=== PATIENT | male | born 1930 | race Caucasian/White ===

== ENCOUNTER → 2016-07-11 | Outpatient (CLI) | payer MEDICARE, OTHER ==
[~2016-07-11] MED LIST: ACET-1757 PO; ALBU1.25 NEB; ALBU18HF INH; ALBU8.5H5 INH; ASCO500T6 PO; ASPI-621 PO; ASPI325T80 PO; BISA10SU2 PR; CARB200C3 PO; CHOL10002 PO; CLOP75TA PO; FLUT1DIS3 INH; FLUT1DIS5 IH; FURO20TA3 PO; HYDR-3138 PO; HYDR-3240 PO; LISI-167 PO; LISINOPRIL PO; METO50TA82 PO; MULT-658 PO; OMEG-14 PO; OMEP20CA9 PO; OXYB10TA6 PO; OXYC-229 PO; POLY17PO5 PO; PROC25SU25 PR; ROSU5TAB PO; SENN-25 PO; TAMS0.4C2 PO; TEMA30CA6 PO; TICA90TA PO; restoril
[2016-07-11 13:31] LABS: ASPARTATE AMINO TRANSFERASE 7 U/L (15-37); BLOOD UREA NITROGEN 21 mg/dL (7-18)
== END | disposition home or self-care (01) ==
LOC: CFH 09:28
PROVIDERS: ATTEND Internal Medicine Cardiovascular Disease
DX: I10 Essential (primary) hypertension (principal); I25.10 Atherosclerotic heart disease of native coronary artery without angina pectoris; I34.0 Nonrheumatic mitral (valve) insufficiency; I48.91 Unspecified atrial fibrillation; F03.90 Unspecified dementia, unspecified severity, without behavioral disturbance, psychotic disturbance, mood disturbance, and anxiety
CPT/HCPCS: 36415; 80053; 80061; 84436; 84443; 84481

== ENCOUNTER → 2017-05-15 | Outpatient (CLI) | payer MEDICARE, OTHER ==
[~2017-05-15] MED LIST changes: -HYDR-3138 PO; +HYDR-3237 PO; -OXYC-229 PO; +OXYC-307 PO
== END | disposition home or self-care (01) ==
LOC: CFH 15:37
PROVIDERS: ATTEND Internal Medicine Cardiovascular Disease
DX: I08.3 Combined rheumatic disorders of mitral, aortic and tricuspid valves (principal); E78.5 Hyperlipidemia, unspecified; I10 Essential (primary) hypertension; I25.10 Atherosclerotic heart disease of native coronary artery without angina pectoris; I48.91 Unspecified atrial fibrillation; Z87.891 Personal history of nicotine dependence; Z95.1 Presence of aortocoronary bypass graft; Z79.01 Long term (current) use of anticoagulants
CPT/HCPCS: 93306

== ENCOUNTER 2017-12-07 14:11 | Emergency (ER) | payer MEDICARE, OTHER ==
[~2017-12-07] VITALS: Ht 188 cm; Wt 104.5 kg
[2017-12-07 14:47] LABS: BASOPHILS # (AUTO) 0.05 x10^3/uL (0-0.1); BASOPHILS % (AUTO) 1 % (0-1); EOSINOPHILS # (AUTO) 0.08 x10^3/uL (0-0.4); EOSINOPHILS % (AUTO) 1 % (1-7); LYMPHOCYTES # (AUTO) 1.54 x10^3/uL (1-3.4); LYMPHOCYTES % (AUTO) 15 % (22-44); MD NO; MEAN CORPUSCULAR HEMOGLOBIN 30.8 pg (27.5-34.5); MEAN CORPUSCULAR HGB CONC 33.3 g/dL (33.2-36.2); MEAN CORPUSCULAR VOLUME 92.4 fL (81-97); MEAN PLATELET VOLUME 7.6 fL (7.4-10.4); MONOCYTES # (AUTO) 0.69 x10^3/uL (0.2-0.8); MONOCYTES % (AUTO) 7 % (2-9); NEUTROPHILS # (AUTO) 8.26 x10^3/uL (1.8-6.8); NEUTROPHILS % (AUTO) 78 % (42-75); PLATELET COUNT 218 x10^3/uL (130-400); RED BLOOD COUNT 5.37 x10^6/uL (4.38-5.82); RED CELL DISTRIBUTION WIDTH 15.5 % (9.4-14.8)
[2017-12-07 14:59] LABS: ALANINE AMINOTRANSFERASE 33 U/L (12-78); ALBUMIN 3.3 g/dL (3.4-5.0); ANION GAP 7 mmol/L (5-15); CALCIUM 8.5 mg/dL (8.5-10.1); CHLORIDE 110 mmol/L (98-107); CREATININE 0.96 mg/dL (0.7-1.3)
[2017-12-07] MEDS ORDERED: SODIUM CHLORIDE FLUSH 10ML SYR IVF ONE (15:00)
[2017-12-07 15:03] LABS: ALKALINE PHOSPHATASE 108 U/L (45-117); BILIRUBIN,TOTAL 0.9 mg/dL (0.2-1.0); TOTAL PROTEIN 6.4 g/dL (6.4-8.2); TROPONIN I < 0.015 ng/mL (0.000-0.045)
[2017-12-07 15:30] LABS: MICROSCOPIC INDICATED
[2017-12-07 15:47] LABS: CULTURE INDICATED? NO
[2017-12-07] MEDS ORDERED: SODIUM CHLORIDE 0.9% 1,000ML IVBOLUS ONE (16:30)
[2017-12-07 17:50] VITALS: BP 142/86
== END 2017-12-07 18:08 | disposition home or self-care (01) ==
LOC: ED 18:00
DX: R53.1 Weakness (principal); G30.1 Alzheimer's disease with late onset; F02.80 Dementia in other diseases classified elsewhere, unspecified severity, without behavioral disturbance, psychotic disturbance, mood disturbance, and anxiety; I11.0 Hypertensive heart disease with heart failure; I50.9 Heart failure, unspecified; J44.9 Chronic obstructive pulmonary disease, unspecified; Z87.891 Personal history of nicotine dependence
CPT/HCPCS: 36415; 71045; 80053; 81001; 84484; 85025; 93005; 99285; J7030

== ENCOUNTER 2018-09-14 04:19 | Inpatient (IN) | payer MEDICARE, OTHER ==
[~2018-09-14] VITALS: Ht 180.3 cm; Wt 79.3 kg
[~2018-09-14 04:19] MED LIST changes: +ASPI-496 PO; -ASPI-621 PO; +ASPI81TA45 PO; +CEFD300C37 PO; +CETI5TAB5 PO; +CHOL500045 PO; +DONE10TA7 PO; +DOXY100C2 PO; +DULO20CA45 PO; +GABA-826 PO; +GABA300C10 PO; +LISI5TAB7 PO; +METO25TA91 PO; +POTA10TA5 PO; +ROSU10TA2 PO; +TAMS-11 PO
[2018-09-14] MEDS ORDERED: PANTOPRAZOLE 80 MG in SODIUM CHLORIDE 0.9% 50 ML IVPB ONE (04:41)
[2018-09-14] MEDS ORDERED: SODIUM CHLORIDE 0.9% 1,000ML IVBOLUS ONE (05:00)
--- NOTE | 2018-09-14 05:25 | NUR ---
REPORT FROM DILAI CHINO. FLUIDS AND PROTONIX RUNNING. FAMILY AT BEDSIDE. VSS. CALL LIGHT IN REACH
[2018-09-14 05:30] LABS: ALANINE AMINOTRANSFERASE 48 U/L (12-78); ALBUMIN 3.1 g/dL (3.4-5.0); ANION GAP 7 mmol/L (5-15); BASOPHILS % (AUTO) 0 % (0-1); CALCIUM 8.9 mg/dL (8.5-10.1); CHLORIDE 114 mmol/L (98-107); CREATININE 1.07 mg/dL (0.7-1.3); EOSINOPHILS # (AUTO) 0.08 x10^3/uL (0-0.4); EOSINOPHILS % (AUTO) 1 % (1-7); LYMPHOCYTES # (AUTO) 0.95 x10^3/uL (1-3.4); LYMPHOCYTES % (AUTO) 7 % (22-44); MD NO; MEAN CORPUSCULAR HEMOGLOBIN 29.2 pg (27.5-34.5); MEAN CORPUSCULAR HGB CONC 32.2 g/dL (33.2-36.2); MEAN CORPUSCULAR VOLUME 90.7 fL (81-97); MEAN PLATELET VOLUME 8.4 fL (7.4-10.4); MONOCYTES # (AUTO) 0.76 x10^3/uL (0.2-0.8); MONOCYTES % (AUTO) 5 % (2-9); NEUTROPHILS # (AUTO) 12.82 x10^3/uL (1.8-6.8); NEUTROPHILS % (AUTO) 88 % (42-75); PLATELET COUNT 203 x10^3/uL (130-400); RED BLOOD COUNT 5.03 x10^6/uL (4.38-5.82); RED CELL DISTRIBUTION WIDTH 16.7 % (9.4-14.8)
[2018-09-14 05:32] LABS: ALKALINE PHOSPHATASE 106 U/L (45-117); BILIRUBIN,TOTAL 0.9 mg/dL (0.2-1.0); TOTAL PROTEIN 6.3 g/dL (6.4-8.2)
[2018-09-14 05:44] LABS: INTERNATIONAL NORMALIZED RATIO 1.01 (0.93-1.1); PROTHROMBIN TIME 10.6 Seconds (9.6-11.5)
--- NOTE | 2018-09-14 05:57 | NUR ---
PT RESTING. PT GIVEN MOUTH SWABS. CALL LIGHT IN REACH
[2018-09-14] MEDS: SODIUM CHLORIDE 0.9% 1,000 ML IV SCH (07:16)
[2018-09-14] MEDS ORDERED: LABETALOL 5MG/ML, 20ML IVPush PRN (07:30)
[2018-09-14] MEDS ORDERED: ACETAMINOPHEN 325 MG TABLET PO PRN (07:30)
[2018-09-14] MEDS ORDERED: ONDANSETRON 2MG/ML, 2ML IVPush PRN (07:30)
[2018-09-14] MEDS: FUROSEMIDE 20 MG TABLET PO SCH (09:00)
[2018-09-14 09:34] LABS: MICROSCOPIC AUTO
[2018-09-14 09:46] LABS: CULTURE INDICATED? YES
[2018-09-14] MEDS: METOPROLOL SUCCINATE 25 MG TAB.ER.24H PO SCH (10:11)
[2018-09-14] MEDS: DULOXETINE 20 MG CAPSULE.DR PO SCH (10:12)
[2018-09-14] MEDS: DONEPEZIL 10 MG TABLET PO SCH (10:12)
[2018-09-14] MEDS: TAMSULOSIN 0.4 MG CAP.ER.24H PO SCH (10:12)
[2018-09-14] MEDS: CHOLECALCIFEROL 5,000u TAB PO SCH (10:12)
[2018-09-14 10:28] VITALS: BP 119/69
[2018-09-14 12:43] VITALS: BP 120/69
[2018-09-14] MEDS: PANTOPRAZOLE 80 MG in SODIUM CHLORIDE 0.9% 100 ML IV SCH ×2 (14:23→23:44)
[2018-09-14 19:49] VITALS: BP 119/79
[2018-09-14] MEDS: LISINOPRIL 5 MG TABLET PO SCH (19:59)
[2018-09-14] MEDS: GABAPENTIN 100 MG CAPSULE PO SCH (19:59)
[2018-09-14] MEDS: ATORVASTATIN 40 MG TABLET PO SCH (19:59)
[2018-09-15] MEDS: SODIUM CHLORIDE 0.9% 1,000 ML IV SCH ×2 (03:54→22:53)
[2018-09-15 04:00] VITALS: BP 116/71
[2018-09-15 06:26] LABS: CHLORIDE 114 mmol/L (98-107)
[2018-09-15 06:28] LABS: BASOPHILS # (AUTO) 0.02 x10^3/uL (0-0.1); BASOPHILS % (AUTO) 0 % (0-1); EOSINOPHILS # (AUTO) 0.13 x10^3/uL (0-0.4); EOSINOPHILS % (AUTO) 2 % (1-7); LYMPHOCYTES # (AUTO) 1.21 x10^3/uL (1-3.4); LYMPHOCYTES % (AUTO) 14 % (22-44); MD NO; MEAN CORPUSCULAR HGB CONC 30.9 g/dL (33.2-36.2); MEAN CORPUSCULAR VOLUME 90.5 fL (81-97); MEAN PLATELET VOLUME 8.3 fL (7.4-10.4); MONOCYTES # (AUTO) 0.66 x10^3/uL (0.2-0.8); MONOCYTES % (AUTO) 8 % (2-9); NEUTROPHILS # (AUTO) 6.71 x10^3/uL (1.8-6.8); NEUTROPHILS % (AUTO) 77 % (42-75); PLATELET COUNT 174 x10^3/uL (130-400); RED BLOOD COUNT 4.44 x10^6/uL (4.38-5.82)
[2018-09-15 06:31] LABS: ALANINE AMINOTRANSFERASE 33 U/L (12-78); ALBUMIN 2.7 g/dL (3.4-5.0); ALKALINE PHOSPHATASE 86 U/L (45-117); ANION GAP 10 mmol/L (5-15); BILIRUBIN,TOTAL 1.7 mg/dL (0.2-1.0); CALCIUM 8.5 mg/dL (8.5-10.1); CREATININE 0.92 mg/dL (0.7-1.3); TOTAL PROTEIN 5.6 g/dL (6.4-8.2)
[2018-09-15 07:10] VITALS: BP 129/76
[2018-09-15] MEDS: CHOLECALCIFEROL 5,000u TAB PO SCH (09:55)
[2018-09-15] MEDS: FUROSEMIDE 20 MG TABLET PO SCH (09:55)
[2018-09-15] MEDS: DULOXETINE 20 MG CAPSULE.DR PO SCH (09:55)
[2018-09-15] MEDS: TAMSULOSIN 0.4 MG CAP.ER.24H PO SCH (09:55)
[2018-09-15] MEDS: DONEPEZIL 10 MG TABLET PO SCH (09:55)
[2018-09-15] MEDS: METOPROLOL SUCCINATE 25 MG TAB.ER.24H PO SCH (09:56)
[2018-09-15 12:20] VITALS: BP 121/68
[2018-09-15] MEDS: PANTOPROZOLE 40MG TABLET PO SCH ×2 (12:38→19:59)
--- NOTE | 2018-09-15 12:40 | NUR ---
REC: NPO with IV fluids except sips/chips for now; orange sheet posted in room containing swallowing precautions Addendum: 09/15/18 at 1241 by Nelly CHOUDHURY Amended: Links added.
[2018-09-15] MEDS: POTASSIUM CHLORIDE 10 MEQ in D5%-0.45% NACL 1,000 ML IV SCH (14:32)
[2018-09-15] MEDS: GABAPENTIN 100 MG CAPSULE PO SCH (19:59)
[2018-09-15] MEDS: ATORVASTATIN 40 MG TABLET PO SCH (19:59)
[2018-09-15] MEDS: LISINOPRIL 5 MG TABLET PO SCH (19:59)
[2018-09-15 20:13] VITALS: BP 123/64
[2018-09-16 00:59] VITALS: BP 107/69
[2018-09-16] MEDS: POTASSIUM CHLORIDE 10 MEQ in D5%-0.45% NACL 1,000 ML IV SCH ×2 (03:51→17:59)
[2018-09-16 06:44] VITALS: BP 105/73
[2018-09-16] MEDS: TAMSULOSIN 0.4 MG CAP.ER.24H PO SCH (07:59)
[2018-09-16] MEDS: DONEPEZIL 10 MG TABLET PO SCH (07:59)
[2018-09-16] MEDS: CHOLECALCIFEROL 5,000u TAB PO SCH (07:59)
[2018-09-16] MEDS: PANTOPROZOLE 40MG TABLET PO SCH ×2 (07:59→20:19)
[2018-09-16] MEDS: DULOXETINE 20 MG CAPSULE.DR PO SCH (08:00)
[2018-09-16] MEDS: METOPROLOL SUCCINATE 25 MG TAB.ER.24H PO SCH (08:00)
[2018-09-16 13:52] VITALS: BP 100/63
--- NOTE | 2018-09-16 16:16 | NUR ---
REC THIN/FULL LIQUID; swallow precaution sheet posted at bedside, okay to advance to ground as tolerated Addendum: 09/16/18 at [address] Amended: Links added.
[2018-09-16 19:12] VITALS: BP 101/66
[2018-09-16] MEDS: ATORVASTATIN 40 MG TABLET PO SCH (20:19)
[2018-09-16] MEDS: GABAPENTIN 100 MG CAPSULE PO SCH (20:19)
[2018-09-16] MEDS: LISINOPRIL 5 MG TABLET PO SCH (20:20)
[2018-09-17 00:59] VITALS: BP 98/58
[2018-09-17 05:27] LABS: BASOPHILS # (AUTO) 0.01 x10^3/uL (0-0.1); BASOPHILS % (AUTO) 0 % (0-1); EOSINOPHILS # (AUTO) 0.05 x10^3/uL (0-0.4); EOSINOPHILS % (AUTO) 1 % (1-7); LYMPHOCYTES # (AUTO) 0.58 x10^3/uL (1-3.4); LYMPHOCYTES % (AUTO) 8 % (22-44); MD NO; MEAN CORPUSCULAR HEMOGLOBIN 28.9 pg (27.5-34.5); MEAN CORPUSCULAR HGB CONC 31.9 g/dL (33.2-36.2); MEAN CORPUSCULAR VOLUME 90.6 fL (81-97); MEAN PLATELET VOLUME 8.4 fL (7.4-10.4); MONOCYTES # (AUTO) 0.42 x10^3/uL (0.2-0.8); MONOCYTES % (AUTO) 6 % (2-9); NEUTROPHILS # (AUTO) 6.16 x10^3/uL (1.8-6.8); NEUTROPHILS % (AUTO) 85 % (42-75); PLATELET COUNT 171 x10^3/uL (130-400); RED BLOOD COUNT 4.33 x10^6/uL (4.38-5.82); RED CELL DISTRIBUTION WIDTH 16.6 % (9.4-14.8)
[2018-09-17 06:52] VITALS: BP 94/57
[2018-09-17 07:12] LABS: ANION GAP 7 mmol/L (5-15); CALCIUM 8.3 mg/dL (8.5-10.1); CHLORIDE 109 mmol/L (98-107)
[2018-09-17] MEDS: DULOXETINE 20 MG CAPSULE.DR PO SCH (08:26)
[2018-09-17] MEDS: CHOLECALCIFEROL 5,000u TAB PO SCH (08:26)
[2018-09-17] MEDS: TAMSULOSIN 0.4 MG CAP.ER.24H PO SCH (08:26)
[2018-09-17] MEDS: PANTOPROZOLE 40MG TABLET PO SCH ×2 (08:26→20:01)
[2018-09-17] MEDS: METOPROLOL SUCCINATE 25 MG TAB.ER.24H PO SCH (08:27)
[2018-09-17] MEDS: DONEPEZIL 10 MG TABLET PO SCH (08:28)
[2018-09-17] MEDS ORDERED: PANT40TA5 PO (10:43)
[2018-09-17 13:08] VITALS: BP 89/55
[2018-09-17] MEDS: POTASSIUM CHLORIDE 10 MEQ in D5%-0.45% NACL 1,000 ML IV SCH ×2 (13:48→23:57)
[2018-09-17 13:52] VITALS: BP 99/61
[2018-09-17 19:00] VITALS: BP 96/66
[2018-09-17] MEDS: LISINOPRIL 5 MG TABLET PO SCH (19:56)
[2018-09-17] MEDS: ATORVASTATIN 40 MG TABLET PO SCH (20:01)
[2018-09-17] MEDS: GABAPENTIN 100 MG CAPSULE PO SCH (20:01)
[2018-09-18 01:29] VITALS: BP 106/59
[2018-09-18 07:09] VITALS: BP 115/61
[2018-09-18] MEDS: TAMSULOSIN 0.4 MG CAP.ER.24H PO SCH (09:52)
[2018-09-18] MEDS: PANTOPROZOLE 40MG TABLET PO SCH ×2 (09:52→19:59)
[2018-09-18] MEDS: CHOLECALCIFEROL 5,000u TAB PO SCH (09:52)
[2018-09-18] MEDS: METOPROLOL SUCCINATE 25 MG TAB.ER.24H PO SCH (09:53)
[2018-09-18] MEDS: DULOXETINE 20 MG CAPSULE.DR PO SCH (09:53)
[2018-09-18] MEDS: DONEPEZIL 10 MG TABLET PO SCH (09:53)
[2018-09-18 14:00] VITALS: BP 107/64
[2018-09-18] MEDS: ATORVASTATIN 40 MG TABLET PO SCH (19:59)
[2018-09-18] MEDS: GABAPENTIN 100 MG CAPSULE PO SCH (19:59)
[2018-09-18 20:18] VITALS: BP 118/70
[2018-09-19 01:25] VITALS: BP 104/78
[2018-09-19 06:13] VITALS: BP 109/59
[2018-09-19] MEDS: PANTOPROZOLE 40MG TABLET PO SCH (08:59)
[2018-09-19] MEDS: METOPROLOL SUCCINATE 25 MG TAB.ER.24H PO SCH (08:59)
[2018-09-19] MEDS: DULOXETINE 20 MG CAPSULE.DR PO SCH (08:59)
[2018-09-19] MEDS: CHOLECALCIFEROL 5,000u TAB PO SCH (08:59)
[2018-09-19] MEDS: DONEPEZIL 10 MG TABLET PO SCH (08:59)
[2018-09-19] MEDS: TAMSULOSIN 0.4 MG CAP.ER.24H PO SCH (08:59)
== END 2018-09-19 14:39 | disposition home health service (06) | DRG 377 ==
LOC: ED 05:27 → EDIP 06:16 → 3NE 07:25
PROVIDERS: ADMIT Internal Medicine; ATTEND Internal Medicine
DX: K92.2 Gastrointestinal hemorrhage, unspecified (principal); R65.11 Systemic inflammatory response syndrome (SIRS) of non-infectious origin with acute organ dysfunction; D62 Acute posthemorrhagic anemia; I50.32 Chronic diastolic (congestive) heart failure; K20.9 Esophagitis, unspecified; F02.80 Dementia in other diseases classified elsewhere, unspecified severity, without behavioral disturbance, psychotic disturbance, mood disturbance, and anxiety; D72.829 Elevated white blood cell count, unspecified; E78.5 Hyperlipidemia, unspecified; G30.9 Alzheimer's disease, unspecified; I11.0 Hypertensive heart disease with heart failure; I25.10 Atherosclerotic heart disease of native coronary artery without angina pectoris; I27.20 Pulmonary hypertension, unspecified; I35.0 Nonrheumatic aortic (valve) stenosis; I48.2 Chronic atrial fibrillation; J44.9 Chronic obstructive pulmonary disease, unspecified; N40.0 Benign prostatic hyperplasia without lower urinary tract symptoms; Z88.2 Allergy status to sulfonamides; R13.10 Dysphagia, unspecified; Z51.5 Encounter for palliative care; Z66 Do not resuscitate; Z79.02 Long term (current) use of antithrombotics/antiplatelets; Z79.82 Long term (current) use of aspirin; Z87.19 Personal history of other diseases of the digestive system; Z95.1 Presence of aortocoronary bypass graft; Z95.5 Presence of coronary angioplasty implant and graft; Z90.49 Acquired absence of other specified parts of digestive tract
CPT/HCPCS: 36415; 71045; 80048; 80053; 81001; 85014; 85018; 85025; 85610; 85730; 86850; 86900; 87077; 87086; 87106; 87186; 93005; 96365; G0378; J2405; J3480; C9113; J7030

== ENCOUNTER 2018-10-02 12:36 | Emergency (ER) | payer MEDICARE, OTHER ==
[~2018-10-02] VITALS: Ht 180.3 cm; Wt 75.0 kg
[~2018-10-02 12:36] MED LIST changes: +PANT40TA5 PO
--- NOTE | 2018-10-02 13:04 | NUR ---
JOSE FROM MICHAEL RN. ASSUMING PT CARE AT THIS TIME. PT BIB EMS. HOME HEALTH NURSE NOTED HYPONSION 70/30. LASIX GIVEN THIS AM. PER EMS BP 106/65. HR 60'S. PT DENIES ANY SYMTPOMS, STATES HE FEELS FINE.
--- NOTE | 2018-10-02 13:15 | NUR ---
PT RESTING ON [employer]. SIDERAILS UP X 2. CALL LIGHT IN REACH. NO COMPLAINTS AT THIS TIME.
[2018-10-02 14:05] VITALS: BP 112/82
--- NOTE | 2018-10-02 14:06 | NUR ---
Patient/Caregiver given discharge instructions and they have confirmed that they understand the instructions. Patient to DC desk by WC with assistance from spouse. Pt left with all personal belongings.
== END 2018-10-02 14:08 | disposition home or self-care (01) ==
LOC: ED 14:06
DX: I95.9 Hypotension, unspecified (principal); I11.0 Hypertensive heart disease with heart failure; I50.9 Heart failure, unspecified; I48.91 Unspecified atrial fibrillation; J44.9 Chronic obstructive pulmonary disease, unspecified; Z95.1 Presence of aortocoronary bypass graft; Z87.891 Personal history of nicotine dependence; Z90.49 Acquired absence of other specified parts of digestive tract
CPT/HCPCS: 99283

== ENCOUNTER 2019-03-01 01:03 | Inpatient (IN) | payer MEDICARE, OTHER ==
[~2019-03-01] VITALS: Ht 180.3 cm; Wt 76.5 kg
[~2019-03-01 01:03] MED LIST changes: -ACET-1757 PO; +ACET-2065 PO; -BISA10SU2 PR; +BISA10SU4 PR
--- NOTE | 2019-03-01 01:18 | NUR ---
patient explained plan of care. verbalized understanding, will contact when plan of care has been established by md. vital signs stable. labs drawn, ekg completed. will continue to monitor. patient has been placed near nurses station to improve patient safety outcomes.
[2019-03-01 01:26] LABS: BASOPHILS # (AUTO) 0.03 x10^3/uL (0-0.1); BASOPHILS % (AUTO) 0 % (0-1); EOSINOPHILS # (AUTO) 0.18 x10^3/uL (0-0.4); EOSINOPHILS % (AUTO) 2 % (1-7); LYMPHOCYTES # (AUTO) 1.49 x10^3/uL (1-3.4); LYMPHOCYTES % (AUTO) 15 % (22-44); MD NO; MEAN CORPUSCULAR HGB CONC 31.5 g/dL (33.2-36.2); MEAN CORPUSCULAR VOLUME 85.9 fL (81-97); MEAN PLATELET VOLUME 7.8 fL (7.4-10.4); MONOCYTES # (AUTO) 0.83 x10^3/uL (0.2-0.8); MONOCYTES % (AUTO) 8 % (2-9); NEUTROPHILS # (AUTO) 7.75 x10^3/uL (1.8-6.8); NEUTROPHILS % (AUTO) 75 % (42-75); PLATELET COUNT 245 x10^3/uL (130-400); RED BLOOD COUNT 4.84 x10^6/uL (4.38-5.82); RED CELL DISTRIBUTION WIDTH 17.7 % (9.4-14.8)
[2019-03-01] MEDS ORDERED: SODIUM CHLORIDE FLUSH 10ML SYR IVF ONE (01:30)
[2019-03-01 01:33] LABS: INTERNATIONAL NORMALIZED RATIO 1.07 (0.93-1.1); PROTHROMBIN TIME 11.2 Seconds (9.6-11.5)
[2019-03-01 01:34] LABS: ALANINE AMINOTRANSFERASE 30 U/L (12-78); ALBUMIN 3.5 g/dL (3.4-5.0); ANION GAP 7 mmol/L (5-15); CALCIUM 9.1 mg/dL (8.5-10.1); CHLORIDE 103 mmol/L (98-107); CREATININE 1.26 mg/dL (0.7-1.3)
--- NOTE | 2019-03-01 01:36 | NUR ---
BREAK RN: PT. PROVIDED WITH SPRITE AFTER OK FROM DR. LOVE. ALL MONITORS IN PLACE. CALL LIGHT IN REACH. ALL SAFETY MEASURES OBSERVED.
[2019-03-01 01:39] LABS: ALKALINE PHOSPHATASE 125 U/L (45-117); T4 (THYROXINE) 6.9 mcg/dL (4.5-12.1); TOTAL PROTEIN 6.8 g/dL (6.4-8.2); TROPONIN I < 0.015 ng/mL (0.000-0.045)
--- NOTE | 2019-03-01 01:50 | NUR ---
patient resting in bed, no noted acute distress. vital signs stable. even unlabored respiratons. will continue to monitor.
[2019-03-01] MEDS ORDERED: FUROSEMIDE 40 MG/4 ML IV ONE (02:00)
--- NOTE | 2019-03-01 02:04 | NUR ---
REPORT BACK TO MATTI LEAHY TO REASSUME CARE OF PT.
[2019-03-01] MEDS ORDERED: FUROSEMIDE 40 MG/4 ML ONE (02:33)
--- NOTE | 2019-03-01 02:50 | NUR ---
patient in room watching tv. stated that he was hungry will consult md regarding food. no other needs noted at this time. vital signs stable. will continue to monitor.
[2019-03-01] MEDS ORDERED: HYDR-3240 PO (03:15)
[2019-03-01] MEDS ORDERED: ASPI-496 PO (03:15)
[2019-03-01] MEDS ORDERED: LORA10TA62 PO (03:16)
--- NOTE | 2019-03-01 03:17 | NUR ---
patient admitted to hospital, md verbalized approval for patient to eat. the patient was given food, and sprite per request. patient tolerates food and oral fluids well, no noted acute distress while eating. patient updated on plan of care. no further needs noted at this time.
[2019-03-01 04:03] VITALS: BP 122/72
[2019-03-01] MEDS ORDERED: DOCUSATE 100 MG CAPSULE PO PRN (05:00)
[2019-03-01] MEDS ORDERED: POLYETHYLENE GLYCOL 17 GM PACKET PO PRN (05:00)
[2019-03-01] MEDS ORDERED: hydrALAzine 20 MG/ML, 1ML IVPush PRN (05:00)
[2019-03-01] MEDS ORDERED: ASPIRIN 81 MG TABLET EC PO SCH (05:00)
[2019-03-01] MEDS ORDERED: ONDANSETRON 2MG/ML, 2ML IVPush PRN (05:00)
[2019-03-01] MEDS ORDERED: BISACODYL 10 MG SUPP PR PRN (05:00)
[2019-03-01] MEDS ORDERED: PROMETHAZINE 25 MG/ML, 1ML IM PRN (05:00)
[2019-03-01] MEDS ORDERED: ONDANSETRON ODT 4 MG PO PRN (05:00)
[2019-03-01] MEDS: HEPARIN 5,000 UNITS/ML, 1ML SQ SCH ×3 (06:06→20:27)
[2019-03-01 06:08] LABS: HEMOGLOBIN A1C 5.6 % (4.2-6.3)
[2019-03-01 07:02] LABS: MICROSCOPIC NOT IND
[2019-03-01 07:04] LABS: CULTURE INDICATED? NO
[2019-03-01 07:50] VITALS: BP 120/73
[2019-03-01] MEDS ORDERED: FUROSEMIDE 20 MG/2 ML IV SCH (09:00)
[2019-03-01 09:11] LABS: TROPONIN I < 0.015 ng/mL (0.000-0.045)
[2019-03-01] MEDS: PANTOPROZOLE 40MG TABLET PO SCH ×2 (09:56→20:28)
[2019-03-01] MEDS: CHOLECALCIFEROL 5,000u TAB PO SCH (09:56)
[2019-03-01] MEDS: DULOXETINE 20 MG CAPSULE.DR PO SCH (09:56)
[2019-03-01] MEDS: DONEPEZIL 10 MG TABLET PO SCH (09:56)
[2019-03-01] MEDS: TAMSULOSIN 0.4 MG CAP.ER.24H PO SCH (09:56)
[2019-03-01 12:15] LABS: TROPONIN I < 0.015 ng/mL (0.000-0.045)
[2019-03-01 13:42] VITALS: BP 115/77
[2019-03-01] MEDS ORDERED: FUROSEMIDE 20 MG/2 ML IV ONE (15:00)
[2019-03-01 18:34] VITALS: BP 95/56
[2019-03-01] MEDS: GABAPENTIN 100 MG CAPSULE PO SCH (20:28)
[2019-03-01] MEDS ORDERED: MAGNESIUM SULFATE PMX 2GM/50ML 50 ML IV ONE (22:00)
[2019-03-02 02:44] VITALS: BP 103/64
[2019-03-02 05:35] LABS: ALBUMIN 3.2 g/dL (3.4-5.0); ANION GAP 5 mmol/L (5-15); CALCIUM 9.3 mg/dL (8.5-10.1); CHLORIDE 101 mmol/L (98-107)
[2019-03-02] MEDS: HEPARIN 5,000 UNITS/ML, 1ML SQ SCH ×3 (05:38→20:31)
[2019-03-02 05:39] LABS: ALANINE AMINOTRANSFERASE 25 U/L (12-78); ALKALINE PHOSPHATASE 117 U/L (45-117); BILIRUBIN,TOTAL 1.2 mg/dL (0.2-1.0); CHOL/HDL RATIO 2.5; CHOLESTEROL, TOTAL 131 mg/dL (140-239); CREATININE 1.12 mg/dL (0.7-1.3); HDL CHOL % 40 % (26-37); HDL CHOLESTEROL (DIRECT) 52 mg/dL (40-60); LDL CHOLESTEROL,CALCULATED 62 mg/dL (54-169); LDL/HDL RATIO 1.2 (0.5-3.0); TOTAL PROTEIN 6.4 g/dL (6.4-8.2); TRIGLYCERIDES 84 mg/dL (50-200); VLDL CHOLESTEROL 17 mg/dL (0-25)
[2019-03-02 06:04] LABS: BASOPHILS % (AUTO) 0 % (0-1); EOSINOPHILS # (AUTO) 0.15 x10^3/uL (0-0.4); EOSINOPHILS % (AUTO) 2 % (1-7); LYMPHOCYTES # (AUTO) 1.38 x10^3/uL (1-3.4); LYMPHOCYTES % (AUTO) 16 % (22-44); MD NO; MEAN CORPUSCULAR HGB CONC 31.4 g/dL (33.2-36.2); MEAN CORPUSCULAR VOLUME 85.9 fL (81-97); MEAN PLATELET VOLUME 8.1 fL (7.4-10.4); MONOCYTES # (AUTO) 0.85 x10^3/uL (0.2-0.8); MONOCYTES % (AUTO) 10 % (2-9); NEUTROPHILS # (AUTO) 6.51 x10^3/uL (1.8-6.8); NEUTROPHILS % (AUTO) 73 % (42-75); PLATELET COUNT 192 x10^3/uL (130-400); RED BLOOD COUNT 5.02 x10^6/uL (4.38-5.82); RED CELL DISTRIBUTION WIDTH 17.5 % (9.4-14.8)
[2019-03-02 06:52] VITALS: BP 108/67
[2019-03-02] MEDS: DONEPEZIL 10 MG TABLET PO SCH (08:45)
[2019-03-02] MEDS: TAMSULOSIN 0.4 MG CAP.ER.24H PO SCH (08:45)
[2019-03-02] MEDS: CHOLECALCIFEROL 5,000u TAB PO SCH (08:45)
[2019-03-02] MEDS: DULOXETINE 20 MG CAPSULE.DR PO SCH (08:45)
[2019-03-02] MEDS: POTASSIUM CHLORIDE 20 MEQ TAB.ER.PRT PO SCH ×2 (08:46→17:24)
[2019-03-02] MEDS: PANTOPROZOLE 40MG TABLET PO SCH ×2 (08:46→20:31)
[2019-03-02] MEDS ORDERED: FUROSEMIDE 40 MG/4 ML IV SCH (09:00)
[2019-03-02] MEDS: ACETAMINOPHEN 325 MG TABLET PO PRN (09:52)
[2019-03-02 13:28] VITALS: BP 97/62
[2019-03-02 19:10] VITALS: BP 117/69
[2019-03-02] MEDS: GABAPENTIN 100 MG CAPSULE PO SCH (20:31)
[2019-03-03 03:53] VITALS: BP 102/66
[2019-03-03] MEDS: HEPARIN 5,000 UNITS/ML, 1ML SQ SCH ×3 (03:59→21:23)
[2019-03-03 05:28] LABS: BASOPHILS # (AUTO) 0.05 x10^3/uL (0-0.1); BASOPHILS % (AUTO) 1 % (0-1); EOSINOPHILS # (AUTO) 0.12 x10^3/uL (0-0.4); EOSINOPHILS % (AUTO) 1 % (1-7); LYMPHOCYTES # (AUTO) 1.54 x10^3/uL (1-3.4); LYMPHOCYTES % (AUTO) 17 % (22-44); MD NO; MEAN CORPUSCULAR HGB CONC 31.3 g/dL (33.2-36.2); MEAN CORPUSCULAR VOLUME 86.3 fL (81-97); MEAN PLATELET VOLUME 8.4 fL (7.4-10.4); MONOCYTES # (AUTO) 1.08 x10^3/uL (0.2-0.8); MONOCYTES % (AUTO) 12 % (2-9); NEUTROPHILS # (AUTO) 6.58 x10^3/uL (1.8-6.8); NEUTROPHILS % (AUTO) 70 % (42-75); PLATELET COUNT 193 x10^3/uL (130-400); RED BLOOD COUNT 4.87 x10^6/uL (4.38-5.82); RED CELL DISTRIBUTION WIDTH 17.7 % (9.4-14.8)
[2019-03-03 05:36] LABS: ANION GAP 3 mmol/L (5-15); CALCIUM 9.3 mg/dL (8.5-10.1); CHLORIDE 102 mmol/L (98-107); CREATININE 1.14 mg/dL (0.7-1.3)
[2019-03-03 06:45] VITALS: BP 106/67
[2019-03-03] MEDS: POTASSIUM CHLORIDE 20 MEQ TAB.ER.PRT PO SCH (09:54)
[2019-03-03] MEDS: DONEPEZIL 10 MG TABLET PO SCH (09:54)
[2019-03-03] MEDS: PANTOPROZOLE 40MG TABLET PO SCH ×2 (09:54→21:23)
[2019-03-03] MEDS: CHOLECALCIFEROL 5,000u TAB PO SCH (09:54)
[2019-03-03] MEDS: DULOXETINE 20 MG CAPSULE.DR PO SCH (09:54)
[2019-03-03] MEDS: TAMSULOSIN 0.4 MG CAP.ER.24H PO SCH (09:59)
[2019-03-03 13:03] VITALS: BP 102/62
[2019-03-03 18:54] VITALS: BP 118/61
[2019-03-03] MEDS: GABAPENTIN 100 MG CAPSULE PO SCH (21:23)
[2019-03-04 00:39] VITALS: BP 123/62
[2019-03-04] MEDS: HEPARIN 5,000 UNITS/ML, 1ML SQ SCH ×3 (05:02→20:51)
[2019-03-04 07:26] VITALS: BP 112/82
[2019-03-04] MEDS: CHOLECALCIFEROL 5,000u TAB PO SCH (08:41)
[2019-03-04] MEDS: TAMSULOSIN 0.4 MG CAP.ER.24H PO SCH (08:41)
[2019-03-04] MEDS: DULOXETINE 20 MG CAPSULE.DR PO SCH (08:41)
[2019-03-04] MEDS: DONEPEZIL 10 MG TABLET PO SCH (08:41)
[2019-03-04] MEDS: PANTOPROZOLE 40MG TABLET PO SCH ×2 (08:41→20:51)
[2019-03-04 14:02] VITALS: BP 122/68
[2019-03-04 19:35] VITALS: BP 118/70
[2019-03-04] MEDS: GABAPENTIN 100 MG CAPSULE PO SCH (20:51)
[2019-03-05 02:20] VITALS: BP 120/66
[2019-03-05] MEDS: HEPARIN 5,000 UNITS/ML, 1ML SQ SCH ×3 (06:15→20:17)
[2019-03-05 06:50] VITALS: BP 110/70
[2019-03-05] MEDS: GUAIFENESIN 200 MG TABLET PO SCH ×4 (08:34→20:17)
[2019-03-05] MEDS: DONEPEZIL 10 MG TABLET PO SCH (08:35)
[2019-03-05] MEDS: PANTOPROZOLE 40MG TABLET PO SCH ×2 (08:35→20:17)
[2019-03-05] MEDS: TAMSULOSIN 0.4 MG CAP.ER.24H PO SCH (08:35)
[2019-03-05] MEDS: DULOXETINE 20 MG CAPSULE.DR PO SCH (08:36)
[2019-03-05] MEDS: CHOLECALCIFEROL 5,000u TAB PO SCH (08:36)
[2019-03-05 12:56] VITALS: BP 122/78
[2019-03-05] MEDS: ACETAMINOPHEN 325 MG TABLET PO PRN (15:54)
[2019-03-05] MEDS: GABAPENTIN 100 MG CAPSULE PO SCH (20:17)
[2019-03-05 20:28] VITALS: BP 100/68
[2019-03-06 01:26] VITALS: BP 108/61
[2019-03-06] MEDS: GUAIFENESIN 200 MG TABLET PO SCH ×2 (05:22→12:00)
[2019-03-06] MEDS: HEPARIN 5,000 UNITS/ML, 1ML SQ SCH (05:22)
[2019-03-06 07:40] VITALS: BP 110/64
[2019-03-06] MEDS ORDERED: FUROSEMIDE 20 MG TABLET PO SCH (09:00)
[2019-03-06] MEDS: CHOLECALCIFEROL 5,000u TAB PO SCH (09:29)
[2019-03-06] MEDS: PANTOPROZOLE 40MG TABLET PO SCH (09:29)
[2019-03-06] MEDS: DULOXETINE 20 MG CAPSULE.DR PO SCH (09:29)
[2019-03-06] MEDS: TAMSULOSIN 0.4 MG CAP.ER.24H PO SCH (09:29)
[2019-03-06] MEDS: DONEPEZIL 10 MG TABLET PO SCH (09:29)
== END 2019-03-06 13:10 | DRG 292 ==
LOC: ED 01:44 → EDIP 02:06 → 5SO 03:25
PROVIDERS: ADMIT Internal Medicine; ATTEND Family Medicine
DX: I11.0 Hypertensive heart disease with heart failure (principal); I48.20 Chronic atrial fibrillation, unspecified; D68.69 Other thrombophilia; I42.9 Cardiomyopathy, unspecified; I50.23 Acute on chronic systolic (congestive) heart failure; E78.5 Hyperlipidemia, unspecified; F02.80 Dementia in other diseases classified elsewhere, unspecified severity, without behavioral disturbance, psychotic disturbance, mood disturbance, and anxiety; G30.9 Alzheimer's disease, unspecified; I08.1 Rheumatic disorders of both mitral and tricuspid valves; I25.10 Atherosclerotic heart disease of native coronary artery without angina pectoris; J44.9 Chronic obstructive pulmonary disease, unspecified; N40.0 Benign prostatic hyperplasia without lower urinary tract symptoms; R29.6 Repeated falls; Z66 Do not resuscitate; W18.30XA Fall on same level, unspecified, initial encounter; Z87.19 Personal history of other diseases of the digestive system; Z87.891 Personal history of nicotine dependence; Z95.1 Presence of aortocoronary bypass graft; Z95.5 Presence of coronary angioplasty implant and graft; Z90.49 Acquired absence of other specified parts of digestive tract; Z88.2 Allergy status to sulfonamides; Z82.49 Family history of ischemic heart disease and other diseases of the circulatory system; Z79.82 Long term (current) use of aspirin; Z79.899 Other long term (current) drug therapy
CPT/HCPCS: 36415; 71045; 80048; 80053; 80061; 81003; 83036; 83735; 83880; 84436; 84439; 84443; 84484; 85025; 85610; 85730; 93005; 93306; G0378; J1644; J1940; J3475

== ENCOUNTER 2019-04-13 06:14 | Inpatient (IN) | payer MEDICARE, OTHER ==
[~2019-04-13] VITALS: Ht 180.3 cm; Wt 82.6 kg
[~2019-04-13 06:14] MED LIST changes: +LORA10TA62 PO
[2019-04-13] MEDS ORDERED: SODIUM CHLORIDE FLUSH 10ML SYR IVF ONE (06:30)
[2019-04-13] MEDS ORDERED: FURO20TA3 PO (06:36)
[2019-04-13] MEDS ORDERED: POTA20PA25 PO (06:36)
[2019-04-13] MEDS ORDERED: FINA5TAB4 PO (06:36)
[2019-04-13] MEDS ORDERED: OLODATEROL (06:36)
[2019-04-13 06:42] LABS: MEAN CORPUSCULAR HEMOGLOBIN 25.8 pg (27.5-34.5); MEAN CORPUSCULAR HGB CONC 30.9 g/dL (33.2-36.2); MEAN CORPUSCULAR VOLUME 83.3 fL (81-97); MEAN PLATELET VOLUME 7.7 fL (7.4-10.4); PLATELET COUNT 257 x10^3/uL (130-400); RED BLOOD COUNT 4.81 x10^6/uL (4.38-5.82); RED CELL DISTRIBUTION WIDTH 20.1 % (9.4-14.8)
[2019-04-13] MEDS ORDERED: DILTIAZEM 5 MG/ML, 5ML ONE (06:42)
--- NOTE | 2019-04-13 06:46 | NUR ---
10MG CARDIZEM GIVEN PER MD ORDER.
[2019-04-13 06:54] LABS: INTERNATIONAL NORMALIZED RATIO 1.26 (0.93-1.1); PROTHROMBIN TIME 13.1 Seconds (9.6-11.5)
[2019-04-13] MEDS ORDERED: AZITHROMYCIN 500 MG in SODIUM CHLORIDE 0.9% 250 ML IVPB ONE (07:00)
[2019-04-13] MEDS ORDERED: CEFTRIAXONE PMX 1GM/50ML 50 ML IVPB ONE (07:00)
[2019-04-13] MEDS ORDERED: DILTIAZEM 5 MG/ML, 5ML IV ONE (07:00)
[2019-04-13 07:01] LABS: MD YES
[2019-04-13 07:03] LABS: BAND#(MANUAL) 0.95 x10^3/uL; BANDS%(MANUAL) 4 % (0-7); LYMPH#(MANUAL) 0.71 x10^3/uL (1-3.4); LYMPHS% (MANUAL) 3 % (22-44); MONOS#(MANUAL) 0.71 x10^3/uL (0.3-2.7); MONOS% (MANUAL) 3 % (2-9); SEG#(MANUAL) 21.42 x10^3/uL (1.8-6.8); SEGS% (MANUAL) 90 % (42-75)
[2019-04-13 07:04] LABS: ANISOCYTOSIS 1+
[2019-04-13 07:05] LABS: <PLATELET ESTIMATE> ADEQUATE; <PLT MORPHOLOGY> NORMAL PLT MORPH; OVALOCYTES 1+; POLYCHROMASIA 1+
--- NOTE | 2019-04-13 07:06 | NUR ---
RECEIVED REPORT FROM ROSENDA CHINO, PLAN OF CARE DISCUSSED. PT ALERT AND ORIENTED TO SELF AND PLACED, CONFUSED AT TIMES. CHEMICALS FERMENTATION OPERATOR EQUAL. SWALLOWED FLUID WELL, NO COUGHING. PT ON DAY CARE PROVIDER TACHY AT 110-120, CONTINOUS SPO2 AND CYCLE VS.
[2019-04-13] MEDS ORDERED: CEFTRIAXONE PMX 1GM/50ML 50 ML ONE (07:10)
[2019-04-13] MEDS ORDERED: ASPIRIN 81 MG TABLET CHEW ONE (07:11)
--- NOTE | 2019-04-13 07:20 | NUR ---
RECTAL TEMP 97.7, PT HAS DECUB ULCER ON COCCYX, OPEN AREA BLANCHING. PT INCONTIENT OF STOOLS. CLEANED PAUL AREA. REPOSITIONED. BLOOD CULTURES DRAWN X 2
[2019-04-13] MEDS ORDERED: ASPIRIN 81 MG TABLET CHEW PO ONE (07:30)
--- NOTE | 2019-04-13 07:49 | NUR ---
DISCUSSED WITH MD REGARDING SEPSIS PROTOCOL, PER MD NO FLUIDS ORDERED.
[2019-04-13] MEDS ORDERED: SODIUM CHLORIDE FLUSH 10ML SYR IVF PRN ×2 (08:00→11:30)
--- NOTE | 2019-04-13 08:10 | NUR ---
CALLED [facility] PER REQUEST AT [phone] REPORTED FINDINGS, WILL BE IN LATER TODAY.
[2019-04-13] MEDS ORDERED: SODIUM CHLORIDE 0.9% 1,000ML IVBOLUS ONE (08:30)
--- NOTE | 2019-04-13 08:32 | NUR ---
ATTEMPTED TO STRAIGHT CATH FOR URINE, PT HAS STRICTURE UNABLE TO ADVANCE CATH. MD AWARE
--- NOTE | 2019-04-13 09:27 | NUR ---
PT SLEEPING, RESP EVEN AND UNLABORED.
--- NOTE | 2019-04-13 10:07 | NUR ---
PLACED PT ON WAFFLE MATTRESS, NOTIFIED OF BP 86/56
--- NOTE | 2019-04-13 10:32 | NUR ---
CENTRAL LINE INSERTED BY DR. RASMUSSEN, TIME OUT CALLED. PT VERBAL CONSENT.
[2019-04-13] MEDS ORDERED: NOREPINEPHRINE 4 MG in SODIUM CHLORIDE 0.9% 246 ML IV PRN ×2 (10:57→12:00)
[2019-04-13] MEDS ORDERED: SODIUM CHLORIDE 0.9% 1,000 ML IV ONE (11:15)
--- NOTE | 2019-04-13 11:45 | NUR ---
REPORT TO PETER CHINO, PLAN OF CARE DISCUSSED
[2019-04-13] MEDS ORDERED: NS + 20MEQ KCL 1,000 ML IV SCH (11:55)
[2019-04-13] MEDS ORDERED: ACETAMINOPHEN 325 MG TABLET PO PRN (12:00)
[2019-04-13] MEDS ORDERED: OXYcodone/APAP 5/325MG TABLET PO PRN (12:00)
[2019-04-13] MEDS ORDERED: HEPARIN 5,000 UNITS/ML, 1ML SQ SCH (12:00)
[2019-04-13] MEDS ORDERED: ONDANSETRON 2MG/ML, 2ML IVPush PRN (12:00)
[2019-04-13] MEDS ORDERED: PIPERACILLIN/TAZO/PMX 2.25GM 50 ML IV SCH (12:00)
[2019-04-13] MEDS ORDERED: DILTIAZEM 5 MG/ML, 5ML IVPush PRN (12:00)
[2019-04-13 12:33] LABS: FREE T4 (FREE THYROXINE) 1.2 ng/dL (0.76-1.46)
[2019-04-13] MEDS: PIPERACILLIN/TAZO/PMX 3.375GM 50 ML IV SCH ×2 (13:34→19:28)
[2019-04-13 14:03] LABS: ALBUMIN 2.6 g/dL (3.4-5.0); BILIRUBIN, DIRECT 0.4 mg/dL (0.1-0.2)
[2019-04-13 14:05] LABS: BILIRUBIN,INDIRECT 0.5 mg/dL (0.0-2.0); BILIRUBIN,TOTAL 0.9 mg/dL (0.2-1.0)
[2019-04-13] MEDS ORDERED: MAGNESIUM SULFATE PMX 2GM/50ML 50 ML IV ONE (16:00)
[2019-04-13] MEDS ORDERED: HEPARIN 5,000 UNITS/ML, 1ML IV ONE (16:00)
[2019-04-13] MEDS ORDERED: CALCIUM GLUCONATE 9.2 MEQ in SODIUM CHLORIDE 0.9% 100 ML IV ONE (16:30)
[2019-04-13] MEDS: LIDODERM 5% PATCH TD SCH (17:02)
[2019-04-13 17:05] LABS: MICROSCOPIC AUTO
[2019-04-13 17:07] LABS: CULTURE INDICATED? YES
[2019-04-13 17:17] LABS: POTASSIUM,URINE RANDOM 43 mmol/L; SODIUM,URINE RANDOM 11 mmol/L
[2019-04-13 17:24] LABS: CHLORIDE,URINE RANDOM < 10 mmol/L
[2019-04-13] MEDS: HEPARIN 25,000 UNITS/500ML PMX 500 ML IV PRN (18:01)
[2019-04-13] MEDS: GABAPENTIN 100 MG CAPSULE PO SCH (19:35)
[2019-04-13] MEDS: PANTOPROZOLE 40MG TABLET PO SCH (19:35)
[2019-04-14] MEDS: PIPERACILLIN/TAZO/PMX 3.375GM 50 ML IV SCH ×4 (01:20→19:34)
[2019-04-14] MEDS: LIDODERM REMOVE PATCH NOTE XX SCH ×2 (04:10→07:00)
[2019-04-14] MEDS ORDERED: ASPIRIN 325 MG TABLET EC PO SCH (06:00)
[2019-04-14 06:04] LABS: MEAN CORPUSCULAR HEMOGLOBIN 26.5 pg (27.5-34.5); MEAN CORPUSCULAR VOLUME 85.3 fL (81-97); MEAN PLATELET VOLUME 7.9 fL (7.4-10.4); PLATELET COUNT 250 x10^3/uL (130-400); RED BLOOD COUNT 4.62 x10^6/uL (4.38-5.82); RED CELL DISTRIBUTION WIDTH 20.4 % (9.4-14.8)
[2019-04-14 06:10] LABS: ALANINE AMINOTRANSFERASE 43 U/L (12-78); ALBUMIN 2.4 g/dL (3.4-5.0); ANION GAP 9 mmol/L (5-15); CALCIUM 8.8 mg/dL (8.5-10.1); CHLORIDE 110 mmol/L (98-107); CHOLESTEROL, TOTAL 97 mg/dL (140-239); CREATININE 1.13 mg/dL (0.7-1.3)
[2019-04-14 06:13] LABS: ALKALINE PHOSPHATASE 125 U/L (45-117); CHOL/HDL RATIO 2.6; HDL CHOL % 39 % (26-37); HDL CHOLESTEROL (DIRECT) 38 mg/dL (40-60); LDL CHOLESTEROL,CALCULATED 47 mg/dL (54-169); LDL/HDL RATIO 1.2 (0.5-3.0); TOTAL PROTEIN 5.7 g/dL (6.4-8.2); TRIGLYCERIDES 62 mg/dL (50-200); VLDL CHOLESTEROL 12 mg/dL (0-25)
[2019-04-14] MEDS: HEPARIN 5,000 UNITS/ML, 1ML IV PRN ×2 (06:22→19:22)
[2019-04-14 06:26] LABS: BASOPHILS % (AUTO) 0 % (0-1); EOSINOPHILS # (AUTO) 0.29 x10^3/uL (0-0.4); EOSINOPHILS % (AUTO) 2 % (1-7); LYMPHOCYTES # (AUTO) 1.19 x10^3/uL (1-3.4); LYMPHOCYTES % (AUTO) 10 % (22-44); MD SCAN; MONOCYTES # (AUTO) 0.88 x10^3/uL (0.2-0.8); MONOCYTES % (AUTO) 7 % (2-9); NEUTROPHILS # (AUTO) 10.23 x10^3/uL (1.8-6.8); NEUTROPHILS % (AUTO) 81 % (42-75)
[2019-04-14] MEDS: FINASTERIDE 5 MG TABLET PO SCH (09:14)
[2019-04-14] MEDS: CHOLECALCIFEROL 5,000u TAB PO SCH (09:14)
[2019-04-14] MEDS: DONEPEZIL 10 MG TABLET PO SCH (09:14)
[2019-04-14] MEDS: PANTOPROZOLE 40MG TABLET PO SCH (09:15)
[2019-04-14] MEDS: DULOXETINE 20 MG CAPSULE.DR PO SCH (09:15)
[2019-04-14] MEDS ORDERED: NOREPINEPHRINE 4 MG in SODIUM CHLORIDE 0.9% 246 ML IV PRN (12:00)
[2019-04-14] MEDS: HEPARIN 25,000 UNITS/500ML PMX 500 ML IV PRN (17:19)
[2019-04-14] MEDS: CARVEDILOL 3.125 MG TABLET PO SCH (17:21)
[2019-04-14] MEDS: LIDODERM 5% PATCH TD SCH (17:21)
[2019-04-14] MEDS: GABAPENTIN 100 MG CAPSULE PO SCH (21:15)
[2019-04-15 00:28] VITALS: BP 97/66
[2019-04-15] MEDS: PIPERACILLIN/TAZO/PMX 3.375GM 50 ML IV SCH ×4 (01:28→21:27)
[2019-04-15 01:52] LABS: BASOPHILS # (AUTO) 0.01 x10^3/uL (0-0.1); BASOPHILS % (AUTO) 0 % (0-1); EOSINOPHILS # (AUTO) 0.39 x10^3/uL (0-0.4); EOSINOPHILS % (AUTO) 4 % (1-7); LYMPHOCYTES # (AUTO) 1.04 x10^3/uL (1-3.4); LYMPHOCYTES % (AUTO) 10 % (22-44); MD NO; MEAN CORPUSCULAR HEMOGLOBIN 25.9 pg (27.5-34.5); MEAN CORPUSCULAR HGB CONC 31.1 g/dL (33.2-36.2); MEAN CORPUSCULAR VOLUME 83.1 fL (81-97); MEAN PLATELET VOLUME 7.9 fL (7.4-10.4); MONOCYTES # (AUTO) 0.72 x10^3/uL (0.2-0.8); MONOCYTES % (AUTO) 7 % (2-9); NEUTROPHILS # (AUTO) 8.68 x10^3/uL (1.8-6.8); NEUTROPHILS % (AUTO) 80 % (42-75); PLATELET COUNT 247 x10^3/uL (130-400); RED BLOOD COUNT 4.73 x10^6/uL (4.38-5.82); RED CELL DISTRIBUTION WIDTH 20.8 % (9.4-14.8)
[2019-04-15 01:56] LABS: ANION GAP 8 mmol/L (5-15); CALCIUM 8.9 mg/dL (8.5-10.1); CHLORIDE 107 mmol/L (98-107)
[2019-04-15 01:58] LABS: CREATININE 1.24 mg/dL (0.7-1.3)
[2019-04-15 06:15] VITALS: BP 100/60
[2019-04-15] MEDS: ASPIRIN 81 MG TABLET EC PO SCH (06:21)
[2019-04-15] MEDS: CARVEDILOL 3.125 MG TABLET PO SCH ×2 (06:21→17:08)
[2019-04-15] MEDS: LIDODERM REMOVE PATCH NOTE XX SCH (07:00)
[2019-04-15 07:25] VITALS: BP 101/61
[2019-04-15] MEDS: FINASTERIDE 5 MG TABLET PO SCH (08:54)
[2019-04-15] MEDS: DULOXETINE 20 MG CAPSULE.DR PO SCH (08:57)
[2019-04-15] MEDS: PANTOPROZOLE 40MG TABLET PO SCH (08:57)
[2019-04-15] MEDS: DONEPEZIL 10 MG TABLET PO SCH (08:58)
[2019-04-15] MEDS: CHOLECALCIFEROL 5,000u TAB PO SCH (08:58)
[2019-04-15] MEDS: HEPARIN 5,000 UNITS/ML, 1ML IV PRN (11:55)
[2019-04-15 14:32] VITALS: BP 113/79
[2019-04-15] MEDS: HEPARIN 25,000 UNITS/500ML PMX 500 ML IV PRN (15:20)
[2019-04-15 16:47] VITALS: BP 113/71
[2019-04-15] MEDS: GABAPENTIN 100 MG CAPSULE PO SCH (21:26)
[2019-04-15] MEDS: LIDODERM 5% PATCH TD SCH (21:31)
[2019-04-15 21:37] VITALS: BP 106/68
[2019-04-15 22:42] LABS: CLOSTRIDIUM DIFFICILE ANTIGEN NEGATIVE; CLOSTRIDIUM DIFFICILE TOXIN NEGATIVE (Negative)
[2019-04-16 02:34] VITALS: BP 105/75
[2019-04-16] MEDS: HEPARIN 25,000 UNITS/500ML PMX 500 ML IV PRN (04:21)
[2019-04-16] MEDS: PIPERACILLIN/TAZO/PMX 3.375GM 50 ML IV SCH ×4 (04:30→22:56)
[2019-04-16 05:25] LABS: MEAN CORPUSCULAR HEMOGLOBIN 26.4 pg (27.5-34.5); MEAN CORPUSCULAR HGB CONC 31.1 g/dL (33.2-36.2); MEAN CORPUSCULAR VOLUME 84.8 fL (81-97); MEAN PLATELET VOLUME 7.8 fL (7.4-10.4); PLATELET COUNT 235 x10^3/uL (130-400); RED CELL DISTRIBUTION WIDTH 20.4 % (9.4-14.8)
[2019-04-16 05:30] LABS: ANION GAP 8 mmol/L (5-15); CHLORIDE 106 mmol/L (98-107); CREATININE 1.26 mg/dL (0.7-1.3)
[2019-04-16 05:56] LABS: MD YES
[2019-04-16 05:59] LABS: ANISOCYTOSIS 1+; EOS#(MANUAL) 0.18 x10^3/uL (0.0-0.4); EOS% (MANUAL) 2 % (1-7); LYMPH#(MANUAL) 1.69 x10^3/uL (1-3.4); LYMPHS% (MANUAL) 19 % (22-44); MONOS#(MANUAL) 0.45 x10^3/uL (0.3-2.7); MONOS% (MANUAL) 5 % (2-9); SEG#(MANUAL) 6.59 x10^3/uL (1.8-6.8); SEGS% (MANUAL) 74 % (42-75)
[2019-04-16 06:00] LABS: <PLATELET ESTIMATE> ADEQUATE; <PLT MORPHOLOGY> NORMAL PLT MORPH; OVALOCYTES 1+; POLYCHROMASIA 1+
[2019-04-16] MEDS: ASPIRIN 81 MG TABLET EC PO SCH (06:31)
[2019-04-16] MEDS: HEPARIN 5,000 UNITS/ML, 1ML IV PRN ×2 (06:31→20:02)
[2019-04-16] MEDS: CARVEDILOL 3.125 MG TABLET PO SCH ×2 (06:31→17:14)
[2019-04-16] MEDS: LIDODERM REMOVE PATCH NOTE XX SCH (07:00)
[2019-04-16 07:17] VITALS: BP 100/56
[2019-04-16] MEDS: DULOXETINE 20 MG CAPSULE.DR PO SCH (08:12)
[2019-04-16] MEDS: PANTOPROZOLE 40MG TABLET PO SCH (08:12)
[2019-04-16] MEDS: DONEPEZIL 10 MG TABLET PO SCH (08:12)
[2019-04-16] MEDS: CHOLECALCIFEROL 5,000u TAB PO SCH (08:13)
[2019-04-16] MEDS: FINASTERIDE 5 MG TABLET PO SCH (08:13)
[2019-04-16 17:13] VITALS: BP 105/72
[2019-04-16 18:34] VITALS: BP 105/67
[2019-04-16] MEDS: LIDODERM 5% PATCH TD SCH (19:00)
[2019-04-16] MEDS: GABAPENTIN 100 MG CAPSULE PO SCH (21:00)
[2019-04-17 00:07] VITALS: BP 118/77
[2019-04-17] MEDS: HEPARIN 25,000 UNITS/500ML PMX 500 ML IV PRN (00:52)
[2019-04-17 03:00] LABS: MEAN CORPUSCULAR HEMOGLOBIN 25.8 pg (27.5-34.5); MEAN CORPUSCULAR HGB CONC 31.1 g/dL (33.2-36.2); MEAN PLATELET VOLUME 7.8 fL (7.4-10.4); PLATELET COUNT 237 x10^3/uL (130-400); RED BLOOD COUNT 4.85 x10^6/uL (4.38-5.82); RED CELL DISTRIBUTION WIDTH 20.1 % (9.4-14.8)
[2019-04-17 03:07] LABS: ANION GAP 10 mmol/L (5-15); CALCIUM 9.1 mg/dL (8.5-10.1); CHLORIDE 106 mmol/L (98-107); CREATININE 1.17 mg/dL (0.7-1.3)
[2019-04-17 03:24] LABS: BASOPHILS % (AUTO) 0 % (0-1); EOSINOPHILS # (AUTO) 0.33 x10^3/uL (0-0.4); EOSINOPHILS % (AUTO) 3 % (1-7); LYMPHOCYTES # (AUTO) 1.31 x10^3/uL (1-3.4); LYMPHOCYTES % (AUTO) 13 % (22-44); MD SCAN; MONOCYTES # (AUTO) 0.67 x10^3/uL (0.2-0.8); MONOCYTES % (AUTO) 7 % (2-9); NEUTROPHILS # (AUTO) 7.99 x10^3/uL (1.8-6.8); NEUTROPHILS % (AUTO) 78 % (42-75)
[2019-04-17] MEDS: PIPERACILLIN/TAZO/PMX 3.375GM 50 ML IV SCH ×4 (05:24→22:42)
[2019-04-17 05:29] VITALS: BP 124/90
[2019-04-17] MEDS: ASPIRIN 81 MG TABLET EC PO SCH (05:33)
[2019-04-17] MEDS: CARVEDILOL 3.125 MG TABLET PO SCH ×2 (05:33→17:58)
[2019-04-17 07:39] VITALS: BP 112/79
[2019-04-17] MEDS: HEPARIN 5,000 UNITS/ML, 1ML IV PRN (09:51)
[2019-04-17] MEDS: DONEPEZIL 10 MG TABLET PO SCH (09:56)
[2019-04-17] MEDS: CHOLECALCIFEROL 5,000u TAB PO SCH (09:56)
[2019-04-17] MEDS: PANTOPROZOLE 40MG TABLET PO SCH (09:56)
[2019-04-17] MEDS: LIDODERM REMOVE PATCH NOTE XX SCH (09:56)
[2019-04-17] MEDS: DULOXETINE 20 MG CAPSULE.DR PO SCH (09:56)
--- NOTE | 2019-04-17 10:10 | NUR ---
CHOPPED/THIN - OPTICAL LENS MANUFACTURING TECH PLACED SWALLOW PRECAUTION SIGN AT HOB Addendum: 04/17/19 at 1011 by Tara CHOUDHURY Amended: Links added.
[2019-04-17] MEDS ORDERED: POTASSIUM CHLORIDE 20 MEQ TAB.ER.PRT PO ONE (12:00)
[2019-04-17] MEDS: FINASTERIDE 5 MG TABLET PO SCH (12:14)
[2019-04-17 14:05] VITALS: BP 104/68
[2019-04-17 18:49] VITALS: BP 104/67
[2019-04-17] MEDS: LIDODERM 5% PATCH TD SCH (19:00)
[2019-04-17] MEDS: GABAPENTIN 100 MG CAPSULE PO SCH ×2 (20:53→20:58)
[2019-04-17] MEDS ORDERED: ALBUTEROL/IPRATROPIUM 2.5MG/0.5MG, 3 ML NPPB SCH (21:00)
[2019-04-18 01:11] VITALS: BP 108/63
[2019-04-18] MEDS: PIPERACILLIN/TAZO/PMX 3.375GM 50 ML IV SCH ×4 (04:31→22:17)
[2019-04-18 06:07] LABS: MEAN CORPUSCULAR HEMOGLOBIN 25.9 pg (27.5-34.5); MEAN CORPUSCULAR HGB CONC 31.1 g/dL (33.2-36.2); MEAN CORPUSCULAR VOLUME 83.5 fL (81-97); MEAN PLATELET VOLUME 7.8 fL (7.4-10.4); PLATELET COUNT 223 x10^3/uL (130-400); RED BLOOD COUNT 4.64 x10^6/uL (4.38-5.82); RED CELL DISTRIBUTION WIDTH 20.8 % (9.4-14.8)
[2019-04-18 06:11] LABS: ANION GAP 9 mmol/L (5-15); CALCIUM 8.5 mg/dL (8.5-10.1); CHLORIDE 106 mmol/L (98-107); CREATININE 1.21 mg/dL (0.7-1.3)
[2019-04-18 06:18] VITALS: BP 109/82
[2019-04-18] MEDS: ASPIRIN 81 MG TABLET EC PO SCH (06:21)
[2019-04-18] MEDS: CARVEDILOL 3.125 MG TABLET PO SCH ×2 (06:21→17:07)
[2019-04-18 06:27] LABS: BASOPHILS % (AUTO) 0 % (0-1); EOSINOPHILS # (AUTO) 0.25 x10^3/uL (0-0.4); EOSINOPHILS % (AUTO) 3 % (1-7); LYMPHOCYTES % (AUTO) 11 % (22-44); MD MORPH REVIEW ONLY; MONOCYTES # (AUTO) 0.58 x10^3/uL (0.2-0.8); MONOCYTES % (AUTO) 6 % (2-9); NEUTROPHILS # (AUTO) 7.13 x10^3/uL (1.8-6.8); NEUTROPHILS % (AUTO) 80 % (42-75)
[2019-04-18 06:28] LABS: ANISOCYTOSIS 1+; HYPOCHROMIA 1+; OVALOCYTES 1+
[2019-04-18 06:29] LABS: POLYCHROMASIA 1+
[2019-04-18 06:32] LABS: <PLATELET ESTIMATE> ADEQUATE; <PLT MORPHOLOGY> NORMAL PLT MORPH
[2019-04-18] MEDS: LIDODERM REMOVE PATCH NOTE XX SCH (07:00)
[2019-04-18 08:45] VITALS: BP 103/70
[2019-04-18] MEDS: DONEPEZIL 10 MG TABLET PO SCH (09:00)
[2019-04-18] MEDS: CHOLECALCIFEROL 5,000u TAB PO SCH (09:31)
[2019-04-18] MEDS: PANTOPROZOLE 40MG TABLET PO SCH (09:31)
[2019-04-18] MEDS: DULOXETINE 20 MG CAPSULE.DR PO SCH (09:31)
[2019-04-18] MEDS: FINASTERIDE 5 MG TABLET PO SCH (09:35)
[2019-04-18] MEDS ORDERED: ALBUTEROL/IPRATROPIUM 2.5MG/0.5MG, 3 ML NPPB PRN (10:30)
[2019-04-18 15:26] VITALS: BP 122/82
[2019-04-18] MEDS: LIDODERM 5% PATCH TD SCH (17:07)
[2019-04-18] MEDS: POTASSIUM CHLORIDE 20 MEQ TAB.ER.PRT PO SCH (17:07)
[2019-04-18 19:11] VITALS: BP 126/78
[2019-04-18] MEDS: GABAPENTIN 100 MG CAPSULE PO SCH (20:26)
[2019-04-19 00:11] VITALS: BP 107/81
[2019-04-19] MEDS: PIPERACILLIN/TAZO/PMX 3.375GM 50 ML IV SCH ×4 (04:24→22:22)
[2019-04-19 05:01] VITALS: BP 113/71
[2019-04-19] MEDS: CARVEDILOL 3.125 MG TABLET PO SCH ×2 (05:03→17:19)
[2019-04-19] MEDS: ASPIRIN 81 MG TABLET EC PO SCH (05:03)
[2019-04-19 05:34] LABS: BASOPHILS % (AUTO) 0 % (0-1); EOSINOPHILS # (AUTO) 0.32 x10^3/uL (0-0.4); EOSINOPHILS % (AUTO) 3 % (1-7); LYMPHOCYTES # (AUTO) 1.65 x10^3/uL (1-3.4); LYMPHOCYTES % (AUTO) 16 % (22-44); MD NO; MEAN CORPUSCULAR HEMOGLOBIN 26.2 pg (27.5-34.5); MEAN CORPUSCULAR HGB CONC 30.8 g/dL (33.2-36.2); MEAN CORPUSCULAR VOLUME 84.8 fL (81-97); MEAN PLATELET VOLUME 7.9 fL (7.4-10.4); MONOCYTES # (AUTO) 0.72 x10^3/uL (0.2-0.8); MONOCYTES % (AUTO) 7 % (2-9); NEUTROPHILS # (AUTO) 7.38 x10^3/uL (1.8-6.8); NEUTROPHILS % (AUTO) 73 % (42-75); PLATELET COUNT 231 x10^3/uL (130-400); RED BLOOD COUNT 4.64 x10^6/uL (4.38-5.82); RED CELL DISTRIBUTION WIDTH 20.7 % (9.4-14.8)
[2019-04-19 05:45] LABS: ANION GAP 4 mmol/L (5-15); CHLORIDE 110 mmol/L (98-107)
[2019-04-19 05:46] LABS: CREATININE 1.06 mg/dL (0.7-1.3)
[2019-04-19] MEDS: LIDODERM REMOVE PATCH NOTE XX SCH (05:49)
[2019-04-19 09:10] VITALS: BP 116/74
[2019-04-19] MEDS: LIDODERM 5% PATCH TD SCH (09:57)
[2019-04-19] MEDS: CHOLECALCIFEROL 5,000u TAB PO SCH (10:06)
[2019-04-19] MEDS: FINASTERIDE 5 MG TABLET PO SCH (10:07)
[2019-04-19] MEDS: DULOXETINE 20 MG CAPSULE.DR PO SCH (10:07)
[2019-04-19] MEDS: DONEPEZIL 10 MG TABLET PO SCH (10:07)
[2019-04-19] MEDS: PANTOPROZOLE 40MG TABLET PO SCH (10:07)
[2019-04-19] MEDS: POTASSIUM CHLORIDE 20 MEQ TAB.ER.PRT PO SCH (10:07)
[2019-04-19 14:49] VITALS: BP 107/72
[2019-04-19 19:52] VITALS: BP 110/75
[2019-04-19] MEDS: GABAPENTIN 100 MG CAPSULE PO SCH (19:56)
[2019-04-20 01:20] VITALS: BP 112/76
[2019-04-20] MEDS: PIPERACILLIN/TAZO/PMX 3.375GM 50 ML IV SCH ×4 (04:26→22:20)
[2019-04-20 05:23] VITALS: BP 106/78
[2019-04-20] MEDS: CARVEDILOL 3.125 MG TABLET PO SCH ×2 (05:26→17:17)
[2019-04-20] MEDS: ASPIRIN 81 MG TABLET EC PO SCH (05:26)
[2019-04-20] MEDS: LIDODERM REMOVE PATCH NOTE XX SCH (05:35)
[2019-04-20 06:20] LABS: ANION GAP 6 mmol/L (5-15); CALCIUM 8.9 mg/dL (8.5-10.1); CHLORIDE 108 mmol/L (98-107)
[2019-04-20 06:21] LABS: CREATININE 1.26 mg/dL (0.7-1.3)
[2019-04-20 06:21] LABS: MEAN CORPUSCULAR HEMOGLOBIN 25.7 pg (27.5-34.5); MEAN CORPUSCULAR HGB CONC 30.8 g/dL (33.2-36.2); MEAN CORPUSCULAR VOLUME 83.3 fL (81-97); MEAN PLATELET VOLUME 7.8 fL (7.4-10.4); PLATELET COUNT 221 x10^3/uL (130-400); RED BLOOD COUNT 4.73 x10^6/uL (4.38-5.82); RED CELL DISTRIBUTION WIDTH 20.3 % (9.4-14.8)
[2019-04-20 06:50] VITALS: BP 101/65
[2019-04-20 07:06] LABS: MD MORPH REVIEW ONLY
[2019-04-20 07:07] LABS: ANISOCYTOSIS 2+; BASOPHILS # (AUTO) 0.01 x10^3/uL (0-0.1); BASOPHILS % (AUTO) 0 % (0-1); EOSINOPHILS # (AUTO) 0.25 x10^3/uL (0-0.4); EOSINOPHILS % (AUTO) 2 % (1-7); LYMPHOCYTES # (AUTO) 1.34 x10^3/uL (1-3.4); LYMPHOCYTES % (AUTO) 13 % (22-44); MONOCYTES # (AUTO) 0.93 x10^3/uL (0.2-0.8); MONOCYTES % (AUTO) 9 % (2-9); NEUTROPHILS # (AUTO) 7.96 x10^3/uL (1.8-6.8); NEUTROPHILS % (AUTO) 76 % (42-75)
[2019-04-20 07:08] LABS: HYPOCHROMIA 2+; OVALOCYTES 1+; POLYCHROMASIA 1+
[2019-04-20 07:09] LABS: <PLATELET ESTIMATE> ADEQUATE; <PLT MORPHOLOGY> NORMAL PLT MORPH
[2019-04-20] MEDS: LIDODERM 5% PATCH TD SCH (09:00)
[2019-04-20] MEDS: PANTOPROZOLE 40MG TABLET PO SCH (09:07)
[2019-04-20] MEDS: DULOXETINE 20 MG CAPSULE.DR PO SCH (09:07)
[2019-04-20] MEDS: CHOLECALCIFEROL 5,000u TAB PO SCH (09:07)
[2019-04-20] MEDS: DONEPEZIL 10 MG TABLET PO SCH (09:07)
[2019-04-20] MEDS: FINASTERIDE 5 MG TABLET PO SCH (09:07)
[2019-04-20 15:14] VITALS: BP 118/86
[2019-04-20] MEDS: GABAPENTIN 100 MG CAPSULE PO SCH (20:16)
[2019-04-20 20:50] VITALS: BP 108/74
[2019-04-21 02:11] VITALS: BP 104/78
[2019-04-21] MEDS: PIPERACILLIN/TAZO/PMX 3.375GM 50 ML IV SCH ×4 (04:27→22:13)
[2019-04-21 05:13] VITALS: BP 110/71
[2019-04-21] MEDS: ASPIRIN 81 MG TABLET EC PO SCH (05:14)
[2019-04-21] MEDS: CARVEDILOL 3.125 MG TABLET PO SCH ×2 (05:15→17:58)
[2019-04-21] MEDS: LIDODERM REMOVE PATCH NOTE XX SCH (05:25)
[2019-04-21 06:20] LABS: MEAN CORPUSCULAR HGB CONC 31.1 g/dL (33.2-36.2); MEAN CORPUSCULAR VOLUME 83.6 fL (81-97); MEAN PLATELET VOLUME 7.9 fL (7.4-10.4); PLATELET COUNT 251 x10^3/uL (130-400); RED BLOOD COUNT 5.03 x10^6/uL (4.38-5.82); RED CELL DISTRIBUTION WIDTH 20.8 % (9.4-14.8)
[2019-04-21 06:22] LABS: ALANINE AMINOTRANSFERASE 19 U/L (12-78); ALBUMIN 2.5 g/dL (3.4-5.0); ANION GAP 6 mmol/L (5-15); CALCIUM 9.4 mg/dL (8.5-10.1); CHLORIDE 106 mmol/L (98-107)
[2019-04-21 06:24] LABS: ALKALINE PHOSPHATASE 107 U/L (45-117); BILIRUBIN,TOTAL 0.7 mg/dL (0.2-1.0); TOTAL PROTEIN 6.1 g/dL (6.4-8.2)
[2019-04-21 07:38] VITALS: BP 103/70
[2019-04-21 08:00] LABS: BASOPHILS # (AUTO) 0.01 x10^3/uL (0-0.1); BASOPHILS % (AUTO) 0 % (0-1); EOSINOPHILS # (AUTO) 0.22 x10^3/uL (0-0.4); EOSINOPHILS % (AUTO) 2 % (1-7); LYMPHOCYTES # (AUTO) 0.94 x10^3/uL (1-3.4); LYMPHOCYTES % (AUTO) 8 % (22-44); MD SCAN; MONOCYTES # (AUTO) 1.24 x10^3/uL (0.2-0.8); MONOCYTES % (AUTO) 11 % (2-9); NEUTROPHILS # (AUTO) 9.18 x10^3/uL (1.8-6.8); NEUTROPHILS % (AUTO) 79 % (42-75)
[2019-04-21] MEDS ORDERED: LIDOCAINE 1%, 10ML ONE ×2 (08:04→13:18)
[2019-04-21] MEDS: LIDODERM 5% PATCH TD SCH (09:00)
[2019-04-21] MEDS: CHOLECALCIFEROL 5,000u TAB PO SCH (09:29)
[2019-04-21] MEDS: PANTOPROZOLE 40MG TABLET PO SCH (09:29)
[2019-04-21] MEDS: DULOXETINE 20 MG CAPSULE.DR PO SCH (09:29)
[2019-04-21] MEDS: FINASTERIDE 5 MG TABLET PO SCH (09:29)
[2019-04-21] MEDS: DONEPEZIL 10 MG TABLET PO SCH (09:29)
[2019-04-21 14:35] VITALS: BP 111/71
[2019-04-21 20:12] VITALS: BP 118/77
[2019-04-21] MEDS ORDERED: ATORVASTATIN 20 MG TABLET PO SCH (21:00)
[2019-04-21] MEDS: GABAPENTIN 100 MG CAPSULE PO SCH (22:13)
[2019-04-22 02:45] VITALS: BP 113/74
[2019-04-22] MEDS: PIPERACILLIN/TAZO/PMX 3.375GM 50 ML IV SCH (04:11)
[2019-04-22 05:31] LABS: MEAN CORPUSCULAR HEMOGLOBIN 25.6 pg (27.5-34.5); MEAN CORPUSCULAR VOLUME 82.4 fL (81-97); MEAN PLATELET VOLUME 7.7 fL (7.4-10.4); PLATELET COUNT 222 x10^3/uL (130-400); RED BLOOD COUNT 4.99 x10^6/uL (4.38-5.82); RED CELL DISTRIBUTION WIDTH 20.7 % (9.4-14.8)
[2019-04-22 05:45] LABS: ANION GAP 6 mmol/L (5-15); CALCIUM 9.6 mg/dL (8.5-10.1); CHLORIDE 106 mmol/L (98-107)
[2019-04-22 05:48] LABS: CREATININE 1.27 mg/dL (0.7-1.3)
[2019-04-22 06:13] LABS: BASOPHILS # (AUTO) 0.01 x10^3/uL (0-0.1); BASOPHILS % (AUTO) 0 % (0-1); EOSINOPHILS % (AUTO) 2 % (1-7); LYMPHOCYTES # (AUTO) 1.52 x10^3/uL (1-3.4); LYMPHOCYTES % (AUTO) 15 % (22-44); MONOCYTES # (AUTO) 0.82 x10^3/uL (0.2-0.8); MONOCYTES % (AUTO) 8 % (2-9); NEUTROPHILS # (AUTO) 7.32 x10^3/uL (1.8-6.8); NEUTROPHILS % (AUTO) 74 % (42-75)
[2019-04-22 06:14] LABS: MD SCAN
[2019-04-22 06:34] VITALS: BP 126/84
[2019-04-22] MEDS: ASPIRIN 81 MG TABLET EC PO SCH (06:36)
[2019-04-22] MEDS: CARVEDILOL 3.125 MG TABLET PO SCH (06:37)
[2019-04-22] MEDS: LIDODERM REMOVE PATCH NOTE XX SCH (07:00)
[2019-04-22] MEDS: CHOLECALCIFEROL 5,000u TAB PO SCH (08:38)
[2019-04-22] MEDS: FINASTERIDE 5 MG TABLET PO SCH (08:38)
[2019-04-22] MEDS: DONEPEZIL 10 MG TABLET PO SCH (08:38)
[2019-04-22] MEDS: LIDODERM 5% PATCH TD SCH (08:39)
[2019-04-22] MEDS: PANTOPROZOLE 40MG TABLET PO SCH (08:39)
[2019-04-22] MEDS: DULOXETINE 20 MG CAPSULE.DR PO SCH (08:39)
[2019-04-22] MEDS ORDERED: CEFDINIR 300 MG CAPSULE PO SCH (10:30)
[2019-04-22 10:54] VITALS: BP 106/74
[2019-04-22] MEDS ORDERED: CARV3.1212 PO (13:11)
[2019-04-22] MEDS ORDERED: METR500T PO (13:11)
[2019-04-22] MEDS ORDERED: LIDO700A20 TD (13:11)
[2019-04-22] MEDS ORDERED: ATOR20TA37 PO (13:11)
[2019-04-22] MEDS ORDERED: LACT1TAB13 PO (13:11)
[2019-04-22] MEDS ORDERED: CEFD300C37 PO (13:11)
[2019-04-22] MEDS ORDERED: metroNIDAZOLE 500 MG TABLET PO SCH (16:00)
== END 2019-04-22 14:10 | DRG 871 ==
LOC: ED 08:01 → SUATTDRO 08:23 → EDIP 11:15 → CCU 12:08 → 4WST 04-14 22:06
PROVIDERS: ADMIT Emergency Medicine; ATTEND Internal Medicine
PROC: 02HV33Z Insertion of Infusion Device into Superior Vena Cava, Percutaneous Approach (ICD-10-PCS; principal; 2019-04-13)
DX: A41.9 Sepsis, unspecified organism (principal); N17.0 Acute kidney failure with tubular necrosis; J18.9 Pneumonia, unspecified organism; J86.9 Pyothorax without fistula; J96.00 Acute respiratory failure, unspecified whether with hypoxia or hypercapnia; J44.0 Chronic obstructive pulmonary disease with (acute) lower respiratory infection; D68.69 Other thrombophilia; J91.8 Pleural effusion in other conditions classified elsewhere; I48.19 Other persistent atrial fibrillation; I50.22 Chronic systolic (congestive) heart failure; K22.10 Ulcer of esophagus without bleeding; G45.9 Transient cerebral ischemic attack, unspecified; R65.20 Severe sepsis without septic shock; E78.5 Hyperlipidemia, unspecified; R13.10 Dysphagia, unspecified; F02.80 Dementia in other diseases classified elsewhere, unspecified severity, without behavioral disturbance, psychotic disturbance, mood disturbance, and anxiety; G30.9 Alzheimer's disease, unspecified; G89.29 Other chronic pain; I08.1 Rheumatic disorders of both mitral and tricuspid valves; I11.0 Hypertensive heart disease with heart failure; I25.10 Atherosclerotic heart disease of native coronary artery without angina pectoris; I25.5 Ischemic cardiomyopathy; N40.0 Benign prostatic hyperplasia without lower urinary tract symptoms; Z66 Do not resuscitate; Z82.49 Family history of ischemic heart disease and other diseases of the circulatory system; Z86.73 Personal history of transient ischemic attack (TIA), and cerebral infarction without residual deficits; Z87.01 Personal history of pneumonia (recurrent); Z87.19 Personal history of other diseases of the digestive system; Z91.81 History of falling; Z87.891 Personal history of nicotine dependence; Z95.1 Presence of aortocoronary bypass graft; Z95.5 Presence of coronary angioplasty implant and graft
CPT/HCPCS: 32555; 36415; 70450; 70496; 70498; 70551; 71045; 71260; 80047; 80048; 80053; 80061; 80076; 81001; 82436; 82570; 83036; 83605; 83615; 83735; 84100; 84133; 84145; 84300; 84439; 84443; 85025; 85520; 85610; 85730; 87040; 87081; 87086; 87324; 93005; 93308; 93321; 93325; 96365; 96368; 96372; 96375; G0378; J0456; J0610; J0696; J1644; J2543; J3480; J3475; J7030; J7050